=== PATIENT | male | born 1960 | race Caucasian/White ===

== ENCOUNTER 2018-05-07 17:48 | Observation (INO) ==
[2018-05-07] MEDS ORDERED: Sod Chloride 0.9% Inj 1,000 ML IV.SIG ONE (18:45)
[2018-05-07] MEDS ORDERED: Ketorolac Inj 30 MG/ML (IVP) Vial IV.PUSH ONE (18:45)
--- NOTE | 2018-05-07 18:51 | ED ---
HPI General Chief Complaint: Abdominal Pain Stated Complaint: rt side pain/abd pain Time Seen by Provider: 05/07/18 18:45 History of Present Illness HPI narrative: Patient is a 58-year-old male with history of chronic back pain, on oxycodone, anxiety disorder, hyperlipidemia, thyroid disorder, presented to emergency room for right flank pain today, severe sharp. Pain subsided in the emergency room spontaneously. Patient also complained about mild nausea, constipation due to medication use. He denies chest pain, fever, shortness of breath. Related Data Home Medications Medication Instructions Recorded Confirmed atorvastatin 20 mg PO DAILY 05/07/18 05/07/18 clonazepam [Klonopin] 1 mg PO BID 05/07/18 05/07/18 levothyroxine 150 mcg PO DAILY 05/07/18 05/07/18 omega 2-jsq-xbx-fish oil [Fish Oil] 1 tab PO DAILY 05/07/18 05/07/18 oxycodone [OxyContin] 15 mg PO QID 05/07/18 05/07/18 oxycodone myristate [Xtampza ER] 72 mg PO TIDAC 05/07/18 05/07/18 Allergies Allergy/AdvReac Type Severity Reaction Status Date / Time No Known Allergies Allergy Uncoded 02/06/16 14:40 Review of Systems ROS: all other systems reviewed are negative Gastrointestinal Comments: Right flank pain. PMFSH Medical History Medical History Chronic pain due to injury (Acute) High cholesterol (Acute) Hx of fracture of ankle (Acute) Hypothyroid (Acute) Surgical History Surgical History History of back surgery (Acute) Social History Social History Substance History: No History of Abuse Second Hand Smoke Exposure: No Smoking Status: Never smoker How Often Do You Have a Drink Containing Alcohol: 2 to 4 times a month Recent Travel in [facility] within the Last 8 Weeks: No Recent Out of Country Travel within the Last 8 Weeks: No Immunization History Tetanus Immunization: <5 Years Exam Narrative Exam Narrative: GENERAL: 58-year-old male in no apparent distress. SKIN: Focused skin assessment warm/dry. HEAD: Atraumatic. Normocephalic. EYES: Pupils equal and round. No scleral icterus. No injection or drainage. ENT: No nasal bleeding or discharge. Mucous membranes pink and moist. NECK: Trachea midline. No JVD. CARDIOVASCULAR: Regular rate and rhythm. No murmur appreciated. RESPIRATORY: No accessory muscle use. Clear to auscultation. Breath sounds equal bilaterally. GASTROINTESTINAL: Abdomen soft, mild right upper quadrant tenderness, Sadler sign is negative. MUSCULOSKELETAL: No obvious deformities. No clubbing. No cyanosis. No edema. NEUROLOGICAL: Awake and alert. No obvious cranial nerve deficits. Motor grossly within normal limits. Normal speech. PSYCHIATRIC: Appropriate mood and affect; insight and judgment normal. Course Initial Documented Vital Signs Temperature 98.4 F 05/07/18 17:54 Pulse Rate 88 05/07/18 17:54 Respiratory Rate 20 05/07/18 17:54 Blood Pressure 116/64 05/07/18 17:54 Last Documented Vital Signs Temperature 96.5 F L 05/07/18 22:20 Pulse Rate 69 05/07/18 22:20 Respiratory Rate 20 05/07/18 22:54 Blood Pressure 131/80 05/07/18 22:20 Pulse Oximetry 96 05/07/18 22:20 Sign Out Sign Out Data: Patient Sign Out occurred on 05/07/18 at 19:20. Patient's care was discussed, and care was transferred from Diego Alas DO to Rachna Glaser MD. Sign Out Comment: Patient is a 58-year-old male presented to his right flank pain. Will be signed out to incoming physician. Labs and CAT scan pending. Last updated by Diego Alas DO at 05/07/18 18:56 Post-Handoff Eval: Accepted in transfer of care Medical Decision Making MDM Narrative Medical decision making narrative: 58-year-old male with right flank pain, urine analysis, blood work ordered, CAT scan is pending IV fluids, pain medications, nausea medications given. Case will be endorsed to oncoming physician for further evaluation and treatment. Accepted in transfer of care CT abdomen pelvis concerning for pancreatitis and lipase is elevated; patient's case discussed with patient and agrees to observation admission patient's case discussed with medicine service will be placed to observation service for bowel rest IV fluids pain management and repeat lipase Medical Screen Exam Complete: Yes Emergency Medical Condition: Yes Differential Diagnosis Differential Diagnosis: Abdominal pain flank pain renal colic cholecystitis pancreatitis gastritis peptic ulcer disease atypical appendicitis muscular skeletal pain Medical Records Medical records reviewed: Yes I reviewed the patient's medical records. Lab Data Lab results reviewed: Yes I reviewed the patient's lab results. Result diagrams: 05/08/18 06:10 05/08/18 06:10 Lab Results 05/07/18 05/07/18 05/08/18 Range/Units 19:10 19:10 00:05 CBC w Diff Auto diff final WBC 7.5 (4.0-11.0) th/mm3 RBC 4.69 (4.50-5.90) mil/mm3 Hgb 14.3 (13.0-17.0) gm/dL Hct 42.1 (39.0-51.0) % MCV 89.8 (80.0-100.0) fL MCH 30.6 (27.0-34.0) pg MCHC 34.0 (32.0-36.0) % RDW 12.3 (11.6-17.2) % Plt Count 188 (150-450) th/mm3 MPV 9.4 (7.0-11.0) fL Neut % (Auto) 82.6 H (16.0-70.0) % Lymph % (Auto) 10.4 (9.0-44.0) % [place] % (Auto) 4.9 (0.0-8.0) % Eos % (Auto) 1.3 (0.0-4.0) % Baso % (Auto) 0.8 (0.0-2.0) % Neut # (Auto) 6.1 (1.8-7.7) th/mm3 Lymph # (Auto) 0.8 L (1.0-4.8) th/mm3 [place] # (Auto) 0.4 (0.0-0.9) th/mm3 Eos # (Auto) 0.1 (0.0-0.4) th/mm3 Baso # (Auto) 0.1 (0.0-0.2) th/mm3 WBC Differential . Differential Comment . Sodium 139 (136-145) meq/L Potassium 3.8 (3.5-5.1) meq/L Chloride 101 (98-107) meq/L Carbon Dioxide 31.5 (21.0-32.0) meq/L Anion Gap 7 (5-15) meq/L BUN 14 (7-18) mg/dL Creatinine 0.89 (0.60-1.30) mg/dL Estimated GFR 88 L (>89) mL/min Random Glucose 122 H (74-106) mg/dL Calcium 8.4 L (8.5-10.1) mg/dL Magnesium 2.8 H (1.5-2.5) mg/dL Total Bilirubin 0.4 (0.2-1.0) mg/dL AST 31 (15-37) U/L ALT 39 (12-78) U/L Alkaline Phosphatase 65 (45-117) U/L Total Protein 7.3 (6.4-8.2) g/dL Albumin 3.9 (3.4-5.0) g/dL Lipase 928 H (73-393) U/L Urine Color Yellow (Yellw/Straw) Urine Clarity Clear (Clear) Urine pH 8.0 (5.0-8.5) Ur Specific [place] 1.010 (1.002-1.035) Urine Protein Negative (Neg-Trace) mg/dL Urine Glucose (UA) Negative (Negative) mg/dL Urine Ketones Negative (Negative) mg/dL Urine Occult Blood Negative (Negative) Urine Nitrate Negative (Negative) Urine Bilirubin Negative (Negative) Urine Urobilinogen 0.2 (Less than 2) mg/dL Ur Leukocyte Esterase Negative (Negative) Ur Squamous Epith Cells 0-5 (0-5) /hpf Amorphous Sediment Moderate H (None) /hpf Micro UA Comment Culture not ind Ur Microscopic Review Microscopic reviewed Urine Culture Comments Culture not ind 05/08/18 05/08/18 Range/Units 06:10 06:10 CBC w Diff Auto diff final WBC 5.9 (4.0-11.0) th/mm3 RBC 4.14 L (4.50-5.90) mil/mm3 Hgb 12.7 L (13.0-17.0) gm/dL Hct 37.8 L (39.0-51.0) % MCV 91.2 (80.0-100.0) fL MCH 30.6 (27.0-34.0) pg MCHC 33.5 (32.0-36.0) % RDW 12.7 (11.6-17.2) % Plt Count 164 (150-450) th/mm3 MPV 10.3 (7.0-11.0) fL Neut % (Auto) 71.9 H (16.0-70.0) % Lymph % (Auto) 16.5 (9.0-44.0) % [place] % (Auto) 8.1 H (0.0-8.0) % Eos % (Auto) 2.8 (0.0-4.0) % Baso % (Auto) 0.7 (0.0-2.0) % Neut # (Auto) 4.2 (1.8-7.7) th/mm3 Lymph # (Auto) 1.0 (1.0-4.8) th/mm3 [place] # (Auto) 0.5 (0.0-0.9) th/mm3 Eos # (Auto) 0.2 (0.0-0.4) th/mm3 Baso # (Auto) 0.0 (0.0-0.2) th/mm3 WBC Differential . Differential Comment . Sodium 142 (136-145) meq/L Potassium 3.7 (3.5-5.1) meq/L Chloride 108 H (98-107) meq/L Carbon Dioxide 29.7 (21.0-32.0) meq/L Anion Gap 4 L (5-15) meq/L BUN 11 (7-18) mg/dL Creatinine 0.85 (0.60-1.30) mg/dL Estimated GFR Greater than 89 (>89) mL/min Random Glucose 108 H (74-106) mg/dL Calcium 7.7 L (8.5-10.1) mg/dL Magnesium (1.5-2.5) mg/dL Total Bilirubin (0.2-1.0) mg/dL AST (15-37) U/L ALT (12-78) U/L Alkaline Phosphatase (45-117) U/L Total Protein (6.4-8.2) g/dL Albumin (3.4-5.0) g/dL Lipase (73-393) U/L Urine Color (Yellw/Straw) Urine Clarity (Clear) Urine pH (5.0-8.5) Ur Specific [place] (1.002-1.035) Urine Protein (Neg-Trace) mg/dL Urine Glucose (UA) (Negative) mg/dL Urine Ketones (Negative) mg/dL Urine Occult Blood (Negative) Urine Nitrate (Negative) Urine Bilirubin (Negative) Urine Urobilinogen (Less than 2) mg/dL Ur Leukocyte Esterase (Negative) Ur Squamous Epith Cells (0-5) /hpf Amorphous Sediment (None) /hpf Micro UA Comment Ur Microscopic Review Urine Culture Comments Imaging Data Radiologist's impression: Abdomen/Pelvis CT 05/07/18 18:45 CONCLUSION: Indistinct swelling of the pancreatic head with mild peripancreatic induration, likely pancreatitis. Correlate with clinical and laboratory findings. Discharge Plan Discharge Disposition Patient Disposition: ED Admit(ED Internal Use Only) Discharge Condition Condition: Stable Discharge Order Discharge Orders: ED Use Only Admit Order (Routine); Ordered 05/07/18 Ordered By: Rachna Glaser Discharge Details Diagnosis: Pancreatitis Physicians Team ED Provider: Rachna Glaser Primary Care Provider: Pineda Mitchell Attending Provider: Flory Aguirre Status ED Status: Left Department Discharge Information Discharge Date/Time: 05/07/18 21:40
[2018-05-07 19:19] LABS: Baso # (Auto) 0.1 th/mm3 (0.0-0.2); Baso % (Auto) 0.8 % (0.0-2.0); Eos # (Auto) 0.1 th/mm3 (0.0-0.4); Eos % (Auto) 1.3 % (0.0-4.0); Hematocrit 42.1 % (39.0-51.0); Hemoglobin 14.3 gm/dL (13.0-17.0); Lymph # (Auto) 0.8 th/mm3 (1.0-4.8); Lymph % (Auto) 10.4 % (9.0-44.0); Mean Corpuscular Hemoglobin 30.6 pg (27.0-34.0); Mean Corpuscular Volume 89.8 fL (80.0-100.0); Mean Platelet Volume 9.4 fL (7.0-11.0); Mono # (Auto) 0.4 th/mm3 (0.0-0.9); Mono % (Auto) 4.9 % (0.0-8.0); Neut # (Auto) 6.1 th/mm3 (1.8-7.7); Neut % (Auto) 82.6 % (16.0-70.0); Platelet Count 188 th/mm3 (150-450); Red Blood Count 4.69 mil/mm3 (4.50-5.90); Red Cell Distribution Width 12.3 % (11.6-17.2); White Blood Count 7.5 th/mm3 (4.0-11.0)
[2018-05-07 19:37] LABS: Chloride 101 meq/L (98-107); Potassium 3.8 meq/L (3.5-5.1); Sodium 139 meq/L (136-145)
[2018-05-07 19:40] LABS: Calcium 8.4 mg/dL (8.5-10.1)
[2018-05-07 19:41] LABS: Albumin 3.9 g/dL (3.4-5.0); Anion Gap 7 meq/L (5-15); Blood Urea Nitrogen 14 mg/dL (7-18); Carbon Dioxide 31.5 meq/L (21.0-32.0); Glucose,Random 122 mg/dL (74-106); Lipase 928 U/L (73-393); Magnesium 2.8 mg/dL (1.5-2.5)
--- NOTE | 2018-05-07 19:42 | CT ---
EXAM DATE: 05/07/2018 7:37 PM EST AGE/SEX: 58 years / Male INDICATIONS: Right flank pain. CLINICAL DATA: This is the patient's initial encounter. Patient reports that signs and symptoms have been present for 1 day and indicates a pain score of 4/10. MEDICAL/SURGICAL HISTORY: None. Discectomy, lumbar. RADIATION DOSE: 7.87 CTDI (mGy) COMPARISON: No prior exams available for comparison. TECHNIQUE: Multiple contiguous axial images were obtained through the abdomen. Images were obtained using multiple row detector helical technique. Using automated exposure control and adjustment of the mA and/or kV according to patient size, radiation dose was kept as low as reasonably achievable to o btain optimal diagnostic quality images. DICOM format image data is available electronically for rev iew and comparison. FINDINGS: Lower Lungs: The visualized lower lungs are clear. Liver: Visualized portions are grossly unremarkable. Spleen: Visualized portions are grossly unremarkable. Pancreas: Hazy induration around an indistinct swelling of the pancreatic head which may reflect foc al pancreatitis. Mass not entirely excluded though felt less likely given the appearance Kidneys: Normal in size and shape. No evidence of mass or hydronephrosis. Adrenal Glands: Unremarkable. Aorta: The aorta and proximal iliac vessels are grossly unremarkable without aneurysmal dilation. Bowel/Mesentery: The bowel loops are grossly unremarkable. The cecum and sigmoid colon have a normal configuration. Abdominal Wall: Intact. Retroperitoneum: No evidence of adenopathy in the retrocrural, para-aortic, or deep pelvic regions. Bladder: Contours are smooth. Reproductive Organs: No abnormal masses or calcifications seen. Inguinal: The inguinal region is unremarkable without evidence of adenopathy. Bony Structures: Unremarkable. CONCLUSION: Indistinct swelling of the pancreatic head with mild peripancreatic induration, likely pancreatitis. Correlate with clinical and laboratory findings. Electronically signed by: Al Hawkins MD Board Certified Radiologist 05/07/2018 7:41 PM EST
[2018-05-07 19:43] LABS: Alanine Aminotransferase 39 U/L (12-78)
[2018-05-07 19:44] LABS: Aspartate Aminotransferase 31 U/L (15-37); Glomerular Filtration Rate 88 mL/min (>89)
[2018-05-07 19:45] LABS: Total Protein 7.3 g/dL (6.4-8.2)
[2018-05-07 19:46] LABS: Alkaline Phosphatase 65 U/L (45-117)
[2018-05-07] MEDS ORDERED: Bisacodyl 10 MG Supp RECTAL PRN (20:24)
[2018-05-07] MEDS ORDERED: Acetaminophen 325 MG Tablet PO PRN (20:24)
[2018-05-07] MEDS: Sod Chloride 0.9% Inj 1,000 ML IV.CONT SCH (22:55)
[2018-05-07] MEDS: HYDROmorphone PF Inj 0.5 MG/0.5 ML Syringe IV.PUSH PRN (23:55)
[2018-05-08 00:17] LABS: Bilirubin,Urine Negative (Negative); Clarity,Urine Clear (Clear); Color,Urine Yellow (Yellw/Straw); Glucose,Urine (UA) Negative (Negative); Leukocyte Esterase,Urine Negative (Negative); Nitrite,Urine Negative (Negative); Urobilinogen,Urine 0.2 mg/dL (Less than 2)
[2018-05-08 00:24] LABS: Squamous Epithelial Cell,Urine 0-5 /hpf (0-5)
[2018-05-08 00:25] LABS: Amorphous Sediment,Urine Moderate /hpf
[2018-05-08] MEDS: HYDROmorphone PF Inj 0.5 MG/0.5 ML Syringe IV.PUSH PRN ×3 (04:32→12:59)
[2018-05-08 06:45] LABS: Baso % (Auto) 0.7 % (0.0-2.0); Eos # (Auto) 0.2 th/mm3 (0.0-0.4); Eos % (Auto) 2.8 % (0.0-4.0); Hematocrit 37.8 % (39.0-51.0); Hemoglobin 12.7 gm/dL (13.0-17.0); Lymph % (Auto) 16.5 % (9.0-44.0); Mean Corpuscular HGB Conc 33.5 % (32.0-36.0); Mean Corpuscular Hemoglobin 30.6 pg (27.0-34.0); Mean Corpuscular Volume 91.2 fL (80.0-100.0); Mean Platelet Volume 10.3 fL (7.0-11.0); Mono # (Auto) 0.5 th/mm3 (0.0-0.9); Mono % (Auto) 8.1 % (0.0-8.0); Neut # (Auto) 4.2 th/mm3 (1.8-7.7); Neut % (Auto) 71.9 % (16.0-70.0); Platelet Count 164 th/mm3 (150-450); Red Blood Count 4.14 mil/mm3 (4.50-5.90); Red Cell Distribution Width 12.7 % (11.6-17.2); White Blood Count 5.9 th/mm3 (4.0-11.0)
[2018-05-08 06:52] LABS: Chloride 108 meq/L (98-107); Potassium 3.7 meq/L (3.5-5.1); Sodium 142 meq/L (136-145)
[2018-05-08 06:55] LABS: Calcium 7.7 mg/dL (8.5-10.1)
[2018-05-08 06:56] LABS: Anion Gap 4 meq/L (5-15); Blood Urea Nitrogen 11 mg/dL (7-18); Carbon Dioxide 29.7 meq/L (21.0-32.0); Glucose,Random 108 mg/dL (74-106)
[2018-05-08 06:59] LABS: Glomerular Filtration Rate Greater Than 89 mL/min (>89)
[2018-05-08 07:21] LABS: Lipase 733 U/L (73-393)
[2018-05-08] MEDS: Sod Chloride 0.9% Inj 1,000 ML IV.CONT SCH (08:26)
--- NOTE | 2018-05-08 08:42 | P.HP ---
History of Present Illness Primary Care Physician: Pineda Mitchell Chief Complaint: Abdominal pain History of Present Illness: 58-year-old male with known history of hyperlipidemia, hypertriglyceridemia, chronic back pain, hypothyroidism who presented to the hospital for evaluation of abdominal pain. Patient states that 3 days ago he started developing a right-sided constipation that he gets from his chronic opiate use. The pain did improve a little bit than it did come back worse yesterday so he came to the emergency department for evaluation. Patient had workup done and showed elevated lipase level as well as CT scan showing pancreatitis. Patient states that he does not drink alcohol that much however prior to his abdominal discomfort he did drink more than he usually does. He states that he does have chronically elevated triglyceride level which is been having difficulty and lowering. Patient denies any previous episodes of pancreatitis. Upon evaluating patient today he is completely asymptomatic, no objective findings of pain. Patient is very hungry and eager to go home. - Diagnosis (1) Pancreatitis Review of Systems All other systems reviewed negative except as stated in HPI Gastrointestinal: Reports abdominal pain, Reports constipation PMFSH - History History Provided By: Patient - Medical History Medical History: Medical History (Last Reviewed 05/08/18 @ 08:33 by JOAN Crow) Chronic pain due to injury High cholesterol Hypothyroid - Surgical History Surgical History: Surgical History (Last Updated 05/08/18 @ 08:33 by JOAN Crow) History of back surgery Hx of fracture of ankle - Family History Family History: Family History (Last Updated 05/08/18 @ 08:33 by JOAN Crow) Other No pertinent family history - Tobacco History Second Hand Smoke Exposure: No Tobacco Use In Past 30 Days: No Smoking Status: Never smoker - Alcohol History How Often Do You Have a Drink Containing Alcohol: 2 to 4 times a month - Substance Use History Substance History: No History of Abuse - Travel History Recent Travel in the [place] Within the Last 8 Weeks: No Recent Travel Out of the Country Within the Last 8 Weeks: No - Immunization History Tetanus Immunization: <5 Years Hx Influenza Vaccine This Season: No Medications and Allergies Active Medications: Active Medications Acetaminophen (Tylenol) 650 mg PO Q4H PRN PRN Reason: Temp > 100.4 Al Hydroxide/Mg Hydroxide (Milk Of Magnesia Liq) 30 ml PO Q12H PRN PRN Reason: Mild Constipation Bisacodyl (Dulcolax Supp) 10 mg RECTAL DAILY PRN PRN Reason: SEVERE CONSITIPATION Clonazepam (Klonopin) 1 mg PO BID [facility] Hydromorphone HCl (Dilaudid Pf Inj) 1 mg IV.PUSH Q4H PRN PRN Reason: Pain 1 to 10 Last Admin: 05/08/18 08:26 Dose: 1 mg Sodium Chloride (Ns Inj) 1,000 mls @ 100 mls/hr IV.CONT .Q10H [facility] Last Admin: 05/08/18 08:26 Dose: 100 mls/hr Lactulose (Lactulose Liq) 30 ml PO DAILY PRN PRN Reason: SEVERE CONSITIPATION Non-Formulary Medication (Levothyroxine [Levothyroxine]) 150 mcg PO DAILY [facility] Non-Formulary Medication (Oxycodone [Oxycontin]) 15 mg PO QID [facility] Ondansetron HCl (Zofran Inj) 4 mg IV.PUSH Q6H PRN PRN Reason: NAUSEA OR VOMITING Sennosides (Senokot) 17.2 mg PO Q12H PRN PRN Reason: Moderate Constipation Sodium Chloride (Ns Flush) 2 ml IV.FLUSH PRN PRN PRN Reason: FLUSH AFTER USING IV ACCESS Sodium Chloride (Ns Flush) 2 ml IV.FLUSH BID [facility] Last Admin: 05/07/18 23:57 Dose: 2 ml Sodium Chloride (Ns Flush) 2 ml IV.FLUSH PRN PRN PRN Reason: FLUSH AFTER USING IV ACCESS Allergies Allergy/AdvReac Type Severity Reaction Status Date / Time No Known Allergies Allergy Uncoded 02/06/16 14:40 Home Medications Medication Instructions Recorded Confirmed Type atorvastatin 20 mg PO DAILY 05/07/18 05/07/18 History clonazepam [Klonopin] 1 mg PO BID 05/07/18 05/07/18 History levothyroxine 150 mcg PO DAILY 05/07/18 05/07/18 History omega 0-sbg-qnm-fish oil [Fish Oil] 1 tab PO DAILY 05/07/18 05/07/18 History oxycodone [OxyContin] 15 mg PO QID 05/07/18 05/07/18 History oxycodone myristate [Xtampza ER] 72 mg PO TIDAC 05/07/18 05/07/18 History Exam Vital signs: Vital Signs 05/07/18 17:54 05/07/18 20:24 05/07/18 21:40 Temperature 98.4 F Pulse Rate 88 72 67 Respiratory Rate Blood Pressure 116/64 126/74 127/83 Pulse Oximetry 05/07/18 22:00 05/07/18 22:20 05/07/18 22:54 Temperature 96.5 F L 96.5 F L Pulse Rate 69 69 Respiratory Rate 20 Blood Pressure 131/80 131/80 Pulse Oximetry 96 96 Intake & Output 05/07/18 05/08/18 05/08/18 18:59 06:59 18:59 Intake Total 1000 / 1000 Output Total 80 / 80 Balance 920 / 920 Weight 82 kg 75.7 kg Intake: IV 1000 / 1000 Oral 0 / 0 Output: Urine 60 / 60 Stool Other: # Voids 3 Date of Last Bowel Movement 05/08/18 # Bowel Movements 3 Weight On Admission 75.7 kg Narrative: GENERAL: Well-developed, well-nourished, in no acute distress. alert and orientated HEENT: Head is normocephalic without any lesions or masses noted. Facial features are symmetric. Eyes: Pupils equal round reactive to light. Extraocular muscles are intact. Conjunctivae were clear. Oropharyngeal: Pharynx without any erythema edema. Tongue is midline without deviation. Buccal mucosa is moist without any masses or lesions NECK: Supple without any masses. Trachea midline no deviation. No JVD, no bruits are appreciated CARDIAC: Regular rhythm, regular rate. S1/S2 are heard. No murmurs gallops or rubs. LUNGS: Clear to auscultation bilaterally. No wheeze, rhonchi or rales. No use of accessory muscles on inspiration or expiration. ABDOMEN: Soft, nontender. Nondistended. Bowel sounds heard in all 4 quadrants. No organomegaly or masses. Negative rebound, negative guarding EXTREMITIES: No edema, pulses are equal bilaterally. No cyanosis or clubbing NEUROLOGY: Mood and affect appear appropriate. Cranial nerves II through XII grossly intact. Muscle strength 5/5 in upper and lower extremities bilaterally. Deep tendon reflexes are 2+ in upper and lower extremities bilaterally. Results - Labs CBC & Chem 7: 05/08/18 06:10 05/08/18 06:10 Labs: Laboratory Results - last 24 hr 05/07/18 05/07/18 05/08/18 19:10 19:10 00:05 CBC w Diff Auto diff final WBC 7.5 RBC 4.69 Hgb 14.3 Hct 42.1 MCV 89.8 MCH 30.6 MCHC 34.0 RDW 12.3 Plt Count 188 MPV 9.4 Neut % (Auto) 82.6 H Lymph % (Auto) 10.4 [place] % (Auto) 4.9 Eos % (Auto) 1.3 Baso % (Auto) 0.8 Neut # (Auto) 6.1 Lymph # (Auto) 0.8 L [place] # (Auto) 0.4 Eos # (Auto) 0.1 Baso # (Auto) 0.1 WBC Differential . Differential Comment . Sodium 139 Potassium 3.8 Chloride 101 Carbon Dioxide 31.5 Anion Gap 7 BUN 14 Creatinine 0.89 Estimated GFR 88 L Random Glucose 122 H Calcium 8.4 L Magnesium 2.8 H Total Bilirubin 0.4 AST 31 ALT 39 Alkaline Phosphatase 65 Total Protein 7.3 Albumin 3.9 Lipase 928 H Urine Color Yellow Urine Clarity Clear Urine pH 8.0 Ur Specific [place] 1.010 Urine Protein Negative Urine Glucose (UA) Negative Urine Ketones Negative Urine Occult Blood Negative Urine Nitrate Negative Urine Bilirubin Negative Urine Urobilinogen 0.2 Ur Leukocyte Esterase Negative Ur Squamous Epith Cells 0-5 Amorphous Sediment Moderate H Micro UA Comment Culture not ind Ur Microscopic Review Microscopic reviewed Urine Culture Comments Culture not ind 05/08/18 05/08/18 05/08/18 06:10 06:10 06:10 CBC w Diff Auto diff final WBC 5.9 RBC 4.14 L Hgb 12.7 L Hct 37.8 L MCV 91.2 MCH 30.6 MCHC 33.5 RDW 12.7 Plt Count 164 MPV 10.3 Neut % (Auto) 71.9 H Lymph % (Auto) 16.5 [place] % (Auto) 8.1 H Eos % (Auto) 2.8 Baso % (Auto) 0.7 Neut # (Auto) 4.2 Lymph # (Auto) 1.0 [place] # (Auto) 0.5 Eos # (Auto) 0.2 Baso # (Auto) 0.0 WBC Differential . Differential Comment . Sodium 142 Potassium 3.7 Chloride 108 H Carbon Dioxide 29.7 Anion Gap 4 L BUN 11 Creatinine 0.85 Estimated GFR Greater than 89 Random Glucose 108 H Calcium 7.7 L Magnesium Total Bilirubin AST ALT Alkaline Phosphatase Total Protein Albumin Lipase 733 H Urine Color Urine Clarity Urine pH Ur Specific [place] Urine Protein Urine Glucose (UA) Urine Ketones Urine Occult Blood Urine Nitrate Urine Bilirubin Urine Urobilinogen Ur Leukocyte Esterase Ur Squamous Epith Cells Amorphous Sediment Micro UA Comment Ur Microscopic Review Urine Culture Comments - Imaging Impressions Abdomen/Pelvis CT 05/07/18 18:45 CONCLUSION: Indistinct swelling of the pancreatic head with mild peripancreatic induration, likely pancreatitis. Correlate with clinical and laboratory findings. Caprini VTE Risk Assessment Caprini VTE Risk Assessment: No/Low Risk (score <= 1) Caprini Risk Assessment Model: Point Value = 1 Point Value = 2 Point Value = 3 Point Value = 5 Age 41-60 Minor surgery BMI > 25 kg/m2 Swollen legs Varicose veins or History of unexplained or recurrent spontaneous Oral contraceptives or hormone replacement Sepsis (< 1 month) Serious lung disease, including pneumonia (< 1 month) Abnormal pulmonary function Acute myocardial infarction Congestive heart failure (< 1 month) History of inflammatory bowel disease Medical patient at bed rest Age 61-74 Arthroscopic surgery Major open surgery (> 45 min) Laparoscopic surgery (> 45 min) Malignancy Confined to bed (> 72 hours) Immobilizing plaster cast Central venous access Age >= 75 History of VTE Family history of VTE Factor V Leiden Prothrombin [id number] Lupus anticoagulant Anticardiolipin antibodies Elevated serum homocysteine Heparin-induced thrombocytopenia Other congenital or acquired thrombophilia Stroke (< 1 month) Elective arthroplasty Hip, pelvis, or leg fracture Acute spinal cord injury (< 1 month) Prophylaxis Regimen: Total Risk Factor Score Risk Level Prophylaxis Regimen 0-1 Low Early ambulation 2 Moderate Order ONE of the following: *Sequential Compression Device (SCD) *Heparin 5000 units SQ BID 3-4 Higher Order ONE of the following medications: *Heparin 5000 units SQ TID *Enoxaparin/Lovenox 40 mg SQ daily (WT < 150 kg, CrCl > 30 mL/min) *Enoxaparin/Lovenox 30 mg SQ daily (WT < 150 kg, CrCl > 10-29 mL/min) *Enoxaparin/Lovenox 30 mg SQ BID (WT < 150 kg, CrCl > 30 mL/min) AND/OR *Sequential Compression Device (SCD) 5 or more Highest Order ONE of the following medications: *Heparin 5000 units SQ TID (Preferred with Epidurals) *Enoxaparin/Lovenox 40 mg SQ daily (WT < 150 kg, CrCl > 30 mL/min) *Enoxaparin/Lovenox 30 mg SQ daily (WT < 150 kg, CrCl > 10-29 mL/min) *Enoxaparin/Lovenox 30 mg SQ BID (WT < 150 kg, CrCl > 30 mL/min) AND *Sequential Compression Device (SCD) Assessment and Plan - Assessment (1) Pancreatitis Code(s): K85.90 - Acute pancreatitis without necrosis or infection, unspecified Status: Acute - Plan Acute pancreatitis, improving -Likely secondary to hypertriglyceridemia in combination with alcohol use -CT scan does indicate pancreatic abnormality -Lipase level has continued to trend down -Pain is controlled with medications -Diet has been advanced and he tolerated it quite well. -Continue IV fluids -Patient tolerated treatment well. Diet has been advanced. Lipase level trended down. Patient has been completely asymptomatic since coming to the hospital and being admitted. Patient very eager to go home. Discussed with patient essentially on diet, outpatient follow-up. Patient does understand. We will plan discharge accordingly. Chronic back pain, hypothyroidism, anxiety -Continue home medications DVT prevention -Sequential compression devices Discharge Planning: Discharge home in stable condition Activity: Ad herbert. Diet: Healthy heart diet Medication per medication reconciliation Follow-up with primary medical doctor in 1 week
[2018-05-08] MEDS ORDERED: clonazePAM 1 MG Tablet PO SCH (09:00)
[2018-05-08] MEDS ORDERED: Levothyroxine 150 MCG Tablet PO SCH (09:00)
[2018-05-08 11:54] LABS: Triglycerides 285 mg/dL (42-150)
[2018-05-08 16:57] VITALS: BP 114/79; PULSE 78; RESP 16; TEMP 96.4; O2SAT 96
== END 2018-05-08 17:42 | disposition home or self-care (01) ==
LOC: PHEDA 17:48 → PHED 17:48 → PH3 21:40
PROVIDERS: ADMIT Hospitalist; ATTEND Hospitalist